=== PATIENT | female | born 1945 | race Caucasian/White ===

== ENCOUNTER 2025-01-19 11:11 | Emergency (ER) | payer MEDICARE ==
[~2025-01-19] VITALS: Ht 170.2 cm; Wt 89.0 kg
[2025-01-19 11:20] VITALS: TEMP 98.9
--- NOTE | 2025-01-19 11:22 | Physician Documentation ---
Addendum CHIEF COMPLAINT/HPI: This 79-year-old female was brought in on a stroke alert due to intermittent numbness of both upper extremities, trouble finding words and confusion. Patient denies being on any blood thinners (we are attempting to confirm this in the EMR). REVIEW OF SYSTEMS: Constitutional: Denies chills, fatigue, fever, weight gain or weight loss. HEENT: Denies hearing loss, sinus pressure or visual changes. Respiratory: Denies cough, shortness of breath or wheezing. Cardiovascular: Denies chest pain, pain while walking (claudication), edema or palpitations. Gastrointestinal: Denies abdominal pain, blood in stool, constipation, diarrhea, heartburn, loss of appetite, nausea or vomiting. Genitourinary: Denies painful urination (dysuria), excessive amount of urine (polyuria) or urinary frequency. Metabolic/Endocrine: Denies cold intolerance, heat intolerance, excessive thirst (polydipsia) or excessive hunger (polyphagia). Neurological: Trouble finding words and some disorientation. Psychiatric: Denies anxiety or depression. Integumentary: Denies breast discharge, breast lump, hives, mole change(s), rash or skin lesion. Musculoskeletal: Denies back pain, joint pain, joint swelling or neck pain. Hematologic: Denies easily bleeding, easily bruises, lymphedema or issues with blood clots. Immunologic: Denies food allergies or seasonal allergies. PHYSICAL EXAMINATION: Vitals and nursing note reviewed. Constitutional: General: Patient is awake, alert, oriented x 4 in no acute distress and well appearing. Speech is clear and lucid. Appearance: Normal appearance. Patient is not ill-appearing, toxic-appearing or diaphoretic. HENT: Head: Normocephalic and atraumatic. Mouth: Mucous membranes are moist. Pharynx: Oropharynx is clear. Eyes: General: No scleral icterus. Extraocular Movements: Extraocular movements intact. Pupils: Pupils are equal, round, and reactive to light. Neck: Supple, no Kernig or Brudzinski sign. Cardiovascular: Rate and Rhythm: Normal rate and regular rhythm. Heart sounds: No murmur heard. Pulmonary: Effort: No respiratory distress. Breath sounds: No wheezing, rhonchi or rales. Abdominal: General: There is no distension. Palpations: There is no fluid wave, hepatomegaly or mass. Tenderness: There is no abdominal tenderness. There is no guarding. Musculoskeletal: General: No swelling or deformity. Skin: Coloration: Skin is not jaundiced. Findings: No erythema or rash. Neurological: Mental Status: Patient is alert but is having trouble finding words. She is oriented to person and place but does not know the year. MEDICAL DECISION MAKING: Stroke alert was called on this 79-year-old female whose last known well was more than [address] scan of the brain reveals a left frontal subdural hematoma with 5 mm of midline shift. I am starting her on nicardipine with a target systolic pressure of 130-150. I am also arranging transfer to a facility with neurosurgery. Departure Disposition: 02 [facility]ORT TERM [facility]OS[facility] Impression: Primary Impression: Subdural hematoma Condition: Fair THADDEUS SÁNCHEZ MD Jan 19, 2025 11:22
--- NOTE | 2025-01-19 11:58 | ELECTROCARDIOGRAPH REPORT ---
[facility] Test Date: 2025-01-19 Test Time: 11:55:00 Pat Name: LESLIE CASE Department: [facility] Patient ID: [facility]-[id number] Room: Gender: F Aquatics Instructor: : 1945 Requested By: THADDEUS SÁNCHEZ Order Number: [id number] Reading MD: Measurements Intervals [place] Rate: 80 P: 0 NE: 0 QRS: 3 QRSD: 92 T: 20 QT: 370 QTc: 427 Interpretive Statements Atrial fibrillation Abnormal R-wave progression, early transition Minimal ST depression, lateral leads Please click the below link to view image of tracing.
--- NOTE | 2025-01-19 12:05 | RADIOLOGY REPORT ---
EXAM: DI CHEST,SINGLE VIEW HISTORY: Stroke Alert COMPARISON: None TECHNIQUE: Portable upright AP view of the chest was performed. FINDINGS: No pneumothorax, consolidative infiltrates, or pulmonary edema. The heart is not enlarged. There are bilateral breast implants. IMPRESSION: No acute intrathoracic process.
--- NOTE | 2025-01-19 12:07 | RADIOLOGY REPORT ---
EXAM: CT CT STROKE ALERT INDICATION: Stroke Alert TECHNIQUE: CT of the head without intravenous contrast. Radiation Dose : 1. Head: CT Dose: CTDI volume is 53 mGy. Dose-length product is 975 mGy*cm The dose indicators for CT are the volume Computed Tomography (CT) Dose Index (CTDIvol) and the Dose Length Product (DLP), and are measured in units of mGy and mGy-cm, respectively. These indicators are not patient dose, but values generated from the CT scanner acquisition factors. The report includes radiation exposure data for exposures received during this examination. COMPARISON: None FINDINGS: Left frontal subdural hematoma measures 1.4 cm in largest diameter. Rightward midline shift measuring 0.5 cm. The ventricles, sulci and cisterns are age appropriate. The hatfield-white differentiation is intact. The visualized paranasal sinuses and mastoid air cells are clear. The surrounding soft tissues and osseous structures are unremarkable. IMPRESSION: Left frontal subdural hematoma measures 1.4 cm in largest diameter. Rightward midline shift measuring 0.5 cm. Critical Result: Intracranial hemorrhage Findings discussed with THADDEUS SÁNCHEZ at 01/19/2025 12:04 PM, and acknowledged receipt and understanding of the findings. Radiation optimization: All CT scans at this facility use at least one of these dose optimization techniques: automated exposure control mA and/or kV adjustment per patient size (includes targeted exams where dose is matched to clinical indication) or iterative reconstruction.
[2025-01-19 12:10] LABS: MEAN PLATELET VOLUME 7.2 FL (7.4-10.4); RED CELL DISTRIBUTION WIDTH 14.9 % (11.5-14.5)
[2025-01-19 12:19] LABS: CREATININE 0.73 MG/DL (0.40-0.90); TOTAL CARBON DIOXIDE 31.7 MMOL/L (24-32); eCRCL 61 ML/MIN; eGFR 77 ML/MIN
[2025-01-19] MEDS: niCARDipine-NS 40mg/200ml IVPB 200 ML IV PRN (12:20)
[2025-01-19 12:23] LABS: APTT 27 SECONDS (22-32); INR 1.1 INR
[2025-01-19 12:44] VITALS: BP 168/94; PULSE 82; RESP 16; O2SAT 98
--- NOTE | 2025-01-19 16:54 | [facility] CONSULT REPORT ---
[facility] Procedure Note [facility] Procedure Note Consult [facility] Note # Demographics Consult Type: Acute Stroke Level 2 (4.5-24 hrs) Patient Location: Emergency Room First Name: LESLIE Last Name: MANPREET Date of : 1945 Age: 79 Gender: Female Facility: [facility] Time of Initial Page (): 01/19/2025 11:18 First Contact with Site (): 01/19/2025 11:18 # HPI History: 79 yo F PMH HTN, brain aneurysm R hand numbness, intermittent, then normal last night unknown, woke unknown time today slurred speech and expressive aphasia. No more numbness now. Disoriented in EMS, improved in ED, rarely delay in speech. ED MD will see patient and call neurology back. 1150 am reached nurse, they are working on fixing the camera SDH with 5 mm shift BP 130-150 # Scores Time of exam and NIHSS (): 01/19/2025 11:57 Level of Consciousness 1a: [0] = Alert; keenly responsive LOC Questions 1b: [0] = Answers both questions correctly LOC Commands 1c: [0] = Performs both tasks correctly Best Gaze 2: [0] = Normal Visual 3: [0] = No visual loss Facial Palsy 4: [0] = Normal symmetrical movements Motor Arm Left 5a: [0] = No drift Motor Arm Right 5b: [0] = No drift Motor Leg Left 6a: [0] = No drift Motor Leg Right 6b: [0] = No drift Limb Ataxia 7: [0] = Absent Sensory 8: [0] = Normal Best Language 9: [1] = [id number] aphasia Dysarthria 10: [0] = Normal Extinction and Inattention 11: [0] = No abnormality NIHSS Total: 1 # Data Head CT: viewed - hemorrhage - per radiologist read LF SDH 1.4 cm diameter, 0.5 cm R midline shift # Assessment Impression: - Subdural Hematoma # Assessment Impression: SDH: mild speech deficit now, improved Head of bed to 30 degrees Target Blood Pressure: SBP 130-150 ED is contacting neurosurgery Avoid aspirin, NSAIDs, and no thrombolytics Reversal agents for anti-coagulation For any signs of seizure start anti-epileptic medication such as Keppra 500 mg twice daily CTA pending and may need additional imaging in the future to better understand the cause. If signs of increased intracranial pressure (brain shift, [place] reaction, and neurogenic pulmonary edema) and/or ICP >20 mm Hg consider: 3% hypertonic saline (generally preferred with higher efficacy than mannitol, watch out for acute renal failure, acute respiratory distress syndrome, t hrombocytopenia, neutropenia, anemia, increased serum sodium, volume overload with heart failure and pulmonary edema, hyperchloremic metabolic acidosis and coagulopathy. If impaired cardiac function needs close cardiac monitoring. May consider as an alternative 20% mannitol (watch for acute renal failure, pulmonary edema, rebound of existing cerebral edema and arterial hypotension). # Plan Thrombolytic/Intervention: NOT IV Thrombolysis or IA Intervention candidate # Logistics Attestation of consult completion: The patient is located at: [facility]. Facility staff participated in the visit. I performed this tele medicine visit from my offsite office utilizing interactive 2 way audio and visual telecommunication technology at the request of the onsite emergency room provider. Total time spent in telemedicine encounter: I spent 20 minutes reviewing clinical data and/or imaging, obtaining history, examining the patient, communicating with the onsite care team, and in preparation of this report. # Demographics First Name: LESLIE Last Name: MANPREET Thrombolytic/Intraarterial Exclusion: - IV thrombolytic and IA intervention considered but not recommended as this patient's symptoms are not clinically consistent with an assumed diagnosis of stroke Target Blood Pressure: - SBP 130-150 Imaging: (urgency: routine): - CT Angiogram Head and CT Angiogram Neck Therapy/Evaluation: - speech/swallow consultation - PT/OT evaluation - NPO until swallow evaluation Medication: Avoid NSAID and aspirin Other: - If patient has any neurological deterioration please call me back immediately - consult neurosurgery - I have discussed my recommendations with the referring provider Facility: [facility] Electronically signed at 01/19/2025 16:53 ([place] Time) by Billy Raymond MD Neuro Consult Order placed for: Yes BILLY RAYMOND MD Jan 19, 2025 16:54
== END 2025-01-19 18:27 | disposition short-term general hospital (02) ==
LOC: ER 11:11
DX: S06.5XAA Traumatic subdural hemorrhage with loss of consciousness status unknown, initial encounter (principal); I48.91 Unspecified atrial fibrillation; X58.XXXA Exposure to other specified factors, initial encounter; Y93.89 Activity, other specified; Y92.89 Other specified places as the place of occurrence of the external cause; Y99.8 Other external cause status
CPT/HCPCS: 36415; 70450; 71045; 80048; 85025; 85610; 85730; 93005; 96365; 99285; J3490